=== PATIENT | female | born 1985 | race Caucasian/White ===

== ENCOUNTER 2018-12-24 07:37 | Emergency (ER) | payer BC, OTHER ==
[2018-12-24] MEDS ORDERED: Ibuprofen TAB* 600 MG PO ONE (08:04)
--- NOTE | 2018-12-24 08:15 | ED ---
Upper Extremity Pain - HPI Summary HPI Summary: Patient is a 33-year-old female presenting to the ED with left wrist pain. She states she was rollerblading yesterday when she tried to catch herself while falling, falling on an outstretched arm. She is endorsing pain over the dorsum of the wrist. She denies any numbness or tingling. Patient is unable to flex and extend at the wrist. Denies any pain to the hand or to the elbow. No ecchymosis or swelling is noted. Obvious deformity to the left wrist is visualized. - History of Current Complaint Chief Complaint: EDExtremityUpper Stated Complaint: POSS LEFT WRIST BROKEN PER PT Time Seen by Provider: 12/24/18 07:54 Hx Obtained From: Patient Onset/Duration: Started Hours Ago Timing: Constant Severity Initially: Moderate Severity Currently: Moderate Pain Location: Wrist Character: Aching Alleviating Factor(s): Rest, Ice Associated Signs & Symptoms: Positive: Bruising. Negative: Swelling, Redness, Fever Related History: Dominant Hand Right - Risk Factors Non-Orthopedic Risk Factor: Negative DVT Risk Factors: Negative Septic Arthritis Risk Factor: Negative Compartment Syndrome Risk Factors: Pain - Allergies/Home Medications Allergies/Adverse Reactions: Allergies Allergy/AdvReac Type Severity Reaction Status Date / Time Penicillins Allergy Rash Verified 12/24/18 07:51 Home Medications: Home Medications NK [No Home Medications Reported] 12/24/18 [History Confirmed 12/24/18] PMH/Surg Hx/FS Hx/Imm Hx Previously Healthy: Yes - Immunization History Hx Pertussis Vaccination: No Immunizations Up to Date: Yes Infectious Disease History: No Infectious Disease History: Denies: Traveled Outside the [place] in Last 30 Days - Social History Occupation: Employed Full-time Lives: With Family Alcohol Use: Weekly Hx Substance Use: No Substance Use Type: Reports: None Hx Tobacco Use: No Smoking Status (MU): Never Smoked Tobacco Review of Systems Negative: Fever, Chills, Fatigue, Skin Diaphoresis Negative: Palpitations, Chest Pain Negative: Shortness Of Breath, Cough Negative: Abdominal Pain Positive: Arthralgia Skin: Negative Neurological: Negative All Other Systems Reviewed And Are Negative: Yes Physical Exam Triage Information Reviewed: Yes Vital Signs On Initial Exam: Initial Vitals Temp Pulse Resp BP Pulse Ox 98.7 F 80 14 114/72 97 12/24/18 07:47 12/24/18 07:47 12/24/18 07:47 12/24/18 07:47 12/24/18 07:47 Vital Signs Reviewed: Yes Appearance: Positive: Well-Appearing, Well-Nourished Skin: Positive: Warm, Skin Color Reflects Adequate Perfusion Head/Face: Positive: Normal Head/Face Inspection Eyes: Positive: EOMI, Conjunctiva Clear Neck: Positive: Supple, No Lymphadenopathy Respiratory/Lung Sounds: Positive: Clear to Auscultation, Breath Sounds Present Cardiovascular: Positive: RRR, Pulses are Symmetrical in both Upper and Lower Extremities Musculoskeletal: Positive: Pain @ - left wrist Neurological: Positive: Speech Normal Psychiatric: Positive: Affect/Mood Appropriate Procedures - Splinting 1 Hand-Made Type: orthoglass Splint: sugar-tong Pre-Proc Neuro Vasc Exam: normal Post-Proc Neuro Vasc Exam: normal Diagnostics - Vital Signs Vital Signs Temp Pulse Resp BP Pulse Ox 12/24/18 07:47 98.7 F 80 14 114/72 97 - Laboratory Lab Statement: Any lab studies that have been ordered have been reviewed, and results considered in the medical decision making process. Course/Dx - Course Course Of Treatment: During course of treatment, the patient's evaluated for left wrist injury. X-ray obtained. Ibuprofen 600 mg given as well as ice. X- ray read by KAREN Suarez as a nondisplaced fracture of the left distal radius. We will wait for overnight read and call with any differing results. sugar tong placed using orthoglass. NV intact pre and post splint. Sling given. - Diagnoses Differential Diagnosis/HQI/PQRI: Positive: Fracture (Closed), Strain, Sprain Provider Diagnoses: Nondisplaced fracture of radius Discharge - Sign-Out/Discharge Documenting (check all that apply): Patient Departure Patient Received Moderate/Deep Sedation with Procedure: No - Discharge Plan Condition: Stable Disposition: HOME Patient Education Materials: Wrist Fracture in Adults (ED) Referrals: Onofre Senior MD [Medical Doctor] - No Primary Care Phys,NOPCP [Primary Care Provider] - Additional Instructions: Please follow up with Dr. Senior Call tomorrow to make an appt Do not get the splint wet ibuprofen 600ng three times daily x 3-4 days Keep the arm in sling - Billing Disposition and Condition Condition: STABLE Disposition: Home
[2018-12-24 09:54] VITALS: BP 94/67
== END 2018-12-24 09:53 | disposition home or self-care (01) ==
LOC: ED 07:37
DX: S52.92XA Unspecified fracture of left forearm, initial encounter for closed fracture (principal); W19.XXXA Unspecified fall, initial encounter; Y93.51 Activity, roller skating (inline) and skateboarding; Z88.0 Allergy status to penicillin
CPT/HCPCS: 99282; A9270-GY